=== PATIENT | male | born 1950 | race Caucasian/White ===

== ENCOUNTER → 2016-05-20 | Outpatient (CLI) | payer BC ==
[~2016-05-20] MED LIST: CALC1CHW57 PO; CEPH500C2 PO; CLB/200 PO; MULT-506 PO; OXYC1TAB3 PO; PRD/1 PO; TOFA1TAB PO; VALS160T4 PO
[2016-05-20 14:27] LABS: BASO % 0.4 %; BASO ABS # 0.05 K/uL (0-0.2); COMPLETE YES; EOS % 4.1 %; HEMATOCRIT 44.5 % (42-52); IG% 0.3 %; LYMPH % 15.1 %; LYMPH ABS # 1.72 K/uL (1.2-3.4); MEAN CELL VOLUME 93.3 fL (80-100); MEAN CORPUSCULAR HEMOGLOBIN 31.9 pg (25-34); MEAN CORPUSCULAR HGB CONC 34.2 g/dl (32-36); MEAN PLATELET VOLUME 10.3 fL (7.4-10.4); MONO % 9.6 %; NEUT % 70.5 %; PLATELET COUNT 401 K/uL (130-400); RED BLOOD COUNT 4.77 M/uL (4.7-6.1); WHITE BLOOD COUNT 11.41 K/uL (4.8-10.8)
[2016-05-20 14:35] LABS: ALT/SGPT 43 U/L (12-78)
[2016-05-20 14:38] LABS: ALKALINE PHOSPHATASE 85 U/L (45-117); AST/SGOT 31 U/L (15-37)
== END | disposition home or self-care (01) ==
LOC: C.LABBC 09:34
PROVIDERS: ATTEND Internal Medicine Rheumatology
DX: M06.9 Rheumatoid arthritis, unspecified (principal); M25.529 Pain in unspecified elbow

== ENCOUNTER → 2016-07-18 | Outpatient (CLI) | payer BC ==
[~2016-07-18] MED LIST changes: -CEPH500C2 PO; -OXYC1TAB3 PO
[2016-07-18 14:57] LABS: BASO % 0.5 %; BASO ABS # 0.05 K/uL (0-0.2); COMPLETE YES; EOS % 3.4 %; IG% 0.2 %; LYMPH ABS # 1.68 K/uL (1.2-3.4); MEAN CELL VOLUME 95.9 fL (80-100); MEAN CORPUSCULAR HEMOGLOBIN 32.1 pg (25-34); MEAN CORPUSCULAR HGB CONC 33.5 g/dl (32-36); MEAN PLATELET VOLUME 10.6 fL (7.4-10.4); MONO % 7.8 %; NEUT % 72.1 %; PLATELET COUNT 460 K/uL (130-400); RED BLOOD COUNT 5.11 M/uL (4.7-6.1); WHITE BLOOD COUNT 10.51 K/uL (4.8-10.8)
[2016-07-18 15:13] LABS: ALT/SGPT 43 U/L (12-78)
[2016-07-18 15:16] LABS: ALKALINE PHOSPHATASE 93 U/L (45-117); AST/SGOT 29 U/L (15-37)
== END | disposition home or self-care (01) ==
LOC: C.LABBC 10:19
PROVIDERS: ATTEND Internal Medicine Rheumatology
DX: M06.9 Rheumatoid arthritis, unspecified (principal); Z79.899 Other long term (current) drug therapy; M25.529 Pain in unspecified elbow; R79.89 Other specified abnormal findings of blood chemistry

== ENCOUNTER → 2016-11-15 | Outpatient (CLI) | payer BC ==
--- NOTE | 2016-11-15 11:41 | DIAGNOSTIC IMAGING REPORT ---
CT OF THE RIGHT ELBOW WITHOUT CONTRAST CLINICAL HISTORY: Right elbow arthritis. COMPARISON STUDY: Right forearm radiographs April 15, 2011. TECHNIQUE: Axial images of the right elbow were obtained without IV contrast. Sagittal and coronal reconstructions were viewed. FINDINGS: Evaluation of the right elbow is suboptimal as the patient was unable to extend his right elbow. Sensitivity for fracture is diminished on this exam but no fracture s identified. There is marked narrowing of the radiocapitellar and ulnotrochlear joint spaces with near complete loss of the joint space. There is extensive osteophytosis of the radial head, olecranon, capitellum and trochlea. Evaluation for joint effusion is difficult on this exam is no suspicious osseous lesion is present. The adjacent soft tissues are grossly unremarkable. Intra-articular calcified bodies are suspected. IMPRESSION: 1. End-stage osteoarthrosis of the right elbow with near complete loss of the radiocapitellar and ulnotrochlear joint spaces with extensive osteophytosis, as detailed above. 2. Suboptimal evaluation of the right elbow given inability to extend the right elbow. 3. Suspected intra-articular calcific joint bodies. Electronically signed by: Hugo Guillen M.D. 11/15/2016 11:40 AM Dictated Date/Time: 11/15/2016 11:32 AM
== END | disposition home or self-care (01) ==
LOC: C.CTS 10:18
PROVIDERS: ATTEND Physician Assistant
DX: M19.021 Primary osteoarthritis, right elbow (principal)

== ENCOUNTER → 2017-06-03 | Outpatient (CLI) | payer OTHER ==
[2017-06-03 17:00] LABS: BASO % 0.5 %; BASO ABS # 0.05 K/uL (0-0.2); EOS % 2.5 %; EOS ABS # 0.26 K/uL (0-0.5); HEMATOCRIT 45.3 % (42-52); IG# 0.04 K/uL (0.00-0.02); LYMPH % 23.9 %; MEAN CELL VOLUME 92.1 fL (80-100); MEAN CORPUSCULAR HEMOGLOBIN 32.5 pg (25-34); MEAN CORPUSCULAR HGB CONC 35.3 g/dl (32-36); MONO % 8.2 %; MONO ABS # 0.86 K/uL (0.11-0.59); NEUT % 64.5 %; NEUT ABS # 6.73 K/uL (1.4-6.5); PLATELET COUNT 415 K/uL (130-400); RED CELL DISTRIBUTION WIDTH CV 14.2 % (11.5-14.5); RED CELL DISTRIBUTION WIDTH SD 48.3 fL (36.4-46.3); WHITE BLOOD COUNT 10.44 K/uL (4.8-10.8)
[2017-06-03 17:19] LABS: ALBUMIN 3.4 gm/dl (3.4-5.0); ALT/SGPT 38 U/L (12-78); AST/SGOT 30 U/L (15-37); CREATININE 1.09 mg/dl (0.60-1.40)
[2017-06-03 17:22] LABS: ALKALINE PHOSPHATASE 98 U/L (45-117); TOTAL PROTEIN 7.8 gm/dl (6.4-8.2)
== END | disposition home or self-care (01) ==
LOC: C.LABBC 15:30
PROVIDERS: ATTEND Internal Medicine Rheumatology
DX: M06.9 Rheumatoid arthritis, unspecified (principal); Z79.899 Other long term (current) drug therapy

== ENCOUNTER → 2017-10-30 | Outpatient (CLI) | payer BC ==
[2017-10-30 10:24] LABS: BASO % 0.4 %; BASO ABS # 0.04 K/uL (0-0.2); EOS % 3.9 %; EOS ABS # 0.36 K/uL (0-0.5); HEMATOCRIT 47.6 % (42-52); HEMOGLOBIN 16.4 g/dL (14.0-18.0); IG# 0.02 K/uL (0.00-0.02); LYMPH ABS # 1.37 K/uL (1.2-3.4); MEAN CELL VOLUME 94.3 fL (80-100); MEAN CORPUSCULAR HEMOGLOBIN 32.5 pg (25-34); MEAN CORPUSCULAR HGB CONC 34.5 g/dl (32-36); MEAN PLATELET VOLUME 10.4 fL (7.4-10.4); MONO % 9.5 %; MONO ABS # 0.87 K/uL (0.11-0.59); NEUT ABS # 6.47 K/uL (1.4-6.5); PLATELET COUNT 436 K/uL (130-400); RED CELL DISTRIBUTION WIDTH CV 14.7 % (11.5-14.5); RED CELL DISTRIBUTION WIDTH SD 50.3 fL (36.4-46.3); WHITE BLOOD COUNT 9.13 K/uL (4.8-10.8)
[2017-10-30 12:37] LABS: ALBUMIN 3.4 gm/dl (3.4-5.0); ALKALINE PHOSPHATASE 97 U/L (45-117); ALT/SGPT 43 U/L (12-78); AST/SGOT 30 U/L (15-37); BLOOD UREA NITROGEN 16 mg/dl (7-18); CALCIUM 8.9 mg/dl (8.5-10.1); CARBON DIOXIDE 26 mmol/L (21-32); CHOLESTEROL 215 mg/dl (0-200); CREATININE 1.26 mg/dl (0.60-1.40); GLUCOSE 104 mg/dl (70-99); LDL CHOLESTEROL CALCULATED 137 mg/dl; POTASSIUM 3.8 mmol/L (3.5-5.1); SODIUM 141 mmol/L (136-145); TOTAL PROTEIN 7.7 gm/dl (6.4-8.2)
== END | disposition home or self-care (01) ==
LOC: C.LABBC 08:21
PROVIDERS: ATTEND Internal Medicine
DX: M06.9 Rheumatoid arthritis, unspecified (principal); R20.0 Anesthesia of skin; D47.3 Essential (hemorrhagic) thrombocythemia; Z79.899 Other long term (current) drug therapy